=== PATIENT | female | born 1960 | race Caucasian/White ===

== ENCOUNTER 2020-12-29 15:15 | Outpatient (CLI) | payer OTHER ==
[2020-12-29 16:19] LABS: #Basophils 0.1 10x3/uL (0.0-0.2); #Eosinphils 0.2 10x3/uL (0.0-0.5); #Monocytes 0.5 10x3/uL (0.0-1.1); #Neutrophils 4.6 10x3/uL (1.5-8.4); %Eosinophils 2.1 % (0.0-6.0); %Lymphocytes 34.2 % (18.0-47.0); %Neutrophils 56.5 % (40.0-75.0); Hemoglobin 12.9 g/dL (12.0-15.5); Mean Corpuscular HGB CONC 32.1 g/dL (32.0-36.0); Mean Corpuscular Hemoglobin 29.8 pg (27.0-33.0); Mean Corpuscular Volume 92.8 fl (81.6-98.3); Mean Platelet Volume 12.1 fl (7.4-10.4); Platelet Count 256 10x3/uL (150-450); RBC Distribution Width 13.3 % (11.5-14.5); Red Blood Cell (RBC) Count 4.33 10x6/uL (3.90-5.03); White Blood Cell (WBC) Count 8.2 10x3/uL (3.5-10.5)
[2020-12-29 16:43] LABS: Anion Gap 11 mmol/L (10-20); BUN (Urea Nitrogen) 14 mg/dL (9.8-20.1); Calc. Creatinine Clearance 0 mL/min (70-130); Calcium 9.3 mg/dL (7.8-10.44); Carbon Dioxide 27 mmol/L (22-29); Chloride 106 mmol/L (98-107); Glucose 73 mg/dL (70-105); Potassium 4.2 mmol/L (3.5-5.1); Sodium 140 mmol/L (136-145)
[2020-12-30 02:10] LABS: SARS-CoV-2 PCR by NAA Not Detected (NotDetected)
== END 2020-12-29 15:16 | disposition home or self-care (01) ==
LOC: LABBT 15:15
PROVIDERS: ATTEND Orthopaedic Surgery
DX: Z01.812 Encounter for preprocedural laboratory examination (principal); S83.281A Other tear of lateral meniscus, current injury, right knee, initial encounter; S83.241A Other tear of medial meniscus, current injury, right knee, initial encounter; Z20.822 Contact with and (suspected) exposure to COVID-19
CPT/HCPCS: 80048; 85025; 87635; U0003; U0005

== ENCOUNTER 2021-01-03 10:20 | Day surgery (SDC) | payer OTHER ==
[2021-01-02 12:14] VITALS: BMI 37.8
[2021-01-03] MEDS ORDERED: PROPOFOL 20 ML ONE (12:45)
[2021-01-03] MEDS ORDERED: Fentanyl 100 MCG/2 ML VIAL ONE ×2 (14:27→16:02)
[2021-01-03] MEDS ORDERED: Dexamethasone 20 MG/5 ML VIAL ONE (14:44)
[2021-01-03] MEDS ORDERED: Bupivacaine PF 0.5% 30 ML VIAL ONE (14:44)
[2021-01-03] MEDS ORDERED: Lidocaine 1% PF 5 ML VIAL ONE (14:44)
[2021-01-03] MEDS ORDERED: PROPOFOL 200 MG/20 ML VIAL ONE (14:44)
[2021-01-03] MEDS ORDERED: Lidocaine 2% w/Epinephrine 1:200K 20 ML VIAL ONE (14:44)
[2021-01-03] MEDS ORDERED: Ondansetron PF 4 MG/2 ML Vial ONE (14:44)
[2021-01-03] MEDS ORDERED: HYDROcodone/Acetaminophen 5/325 mg Tablet ONE (16:59)
[2021-01-03] MEDS ORDERED: Sodium Chloride 0.9% 10 ML ONE (17:11)
[2021-01-03] MEDS ORDERED: Promethazine HCl 25 MG/ML VIAL ONE (17:11)
== END 2021-01-03 18:23 | disposition home or self-care (01) ==
LOC: SDC 10:20
PROVIDERS: ATTEND Orthopaedic Surgery
PROC: 0SBC4ZZ Excision of Right Knee Joint, Percutaneous Endoscopic Approach (ICD-10-PCS; principal; 2021-01-03)
DX: S83.241A Other tear of medial meniscus, current injury, right knee, initial encounter (principal); S83.281A Other tear of lateral meniscus, current injury, right knee, initial encounter; Z79.899 Other long term (current) drug therapy; Z88.2 Allergy status to sulfonamides
CPT/HCPCS: J0690; J1100; J2405; J2550; J2704; J3010; S0020

== ENCOUNTER 2021-09-25 11:59 | Inpatient (IN) | payer OTHER ==
[2021-09-25] MEDS ORDERED: Diltiazem 125 MG/25 ML ONE (12:14)
[2021-09-25 12:35] LABS: #Basophils 0.1 thou/uL (0.0-0.2); #Eosinphils 0.1 thou/uL (0.0-0.7); #Lymphocytes 2.9 thou/uL (1.20-3.40); #Monocytes 0.6 thou/uL (0.11-0.59); #Neutrophils 6.1 thou/uL (1.40-6.50); %Basophils 0.7 % (0.0-1.0); %Eosinophils 0.7 % (0.0-10.0); %Lymphocytes 29.8 % (21.0-51.0); %Monocytes 6.3 % (0.0-10.0); %Neutrophils 62.4 % (42.0-75.0); Mean Corpuscular HGB CONC 33.7 g/dL (32.0-36.0); Mean Corpuscular Hemoglobin 31.1 pg (27.0-31.0); Mean Corpuscular Volume 92.5 fL (78.0-98.0); Mean Platelet Volume 9.3 fL (7.4-10.4); Platelet Count 253 thou/uL (130-400); RBC Distribution Width 12.1 % (11.5-14.5); Red Blood Cell (RBC) Count 4.48 mill/uL (4.20-5.40); White Blood Cell (WBC) Count 9.7 thou/uL (4.8-10.8)
[2021-09-25 13:07] LABS: ALT (SGPT) 86 U/L (8-55); AST (SGOT) 41 U/L (5-34); Albumin 4.2 g/dL (3.5-5.0); Alkaline Phosphatase 114 U/L (40-110); Anion Gap 12 mmol/L (10-20); BUN (Urea Nitrogen) 14 mg/dL (9.8-20.1); Bilirubin, Total 0.5 mg/dL (0.2-1.2); Calc. Creatinine Clearance 0 mL/min (70-130); Calcium 9.7 mg/dL (7.8-10.44); Carbon Dioxide 26 mmol/L (22-29); Chloride 107 mmol/L (98-107); Globulin 3.3 g/dL (2.4-3.5); Glucose 119 mg/dL (70-105); Lipase 24 U/L (8-78); Potassium 4.4 mmol/L (3.5-5.1); Protein, Total 7.5 g/dL (6.0-8.3); Sodium 141 mmol/L (136-145)
[2021-09-25] MEDS ORDERED: Acetaminophen 325 MG TAB PO PRN (14:46)
[2021-09-25] MEDS ORDERED: Ondansetron ODT 4 MG TAB PO PRN (14:46)
[2021-09-25] MEDS ORDERED: Enoxaparin Sodium 40 MG/0.4 ML SYRINGE SC SCH (15:00)
[2021-09-25] MEDS ORDERED: Diltiazem 125 MG in Sodium Chloride 0.9% 100 ML IVPB SCH (15:00)
[2021-09-25] MEDS ORDERED: Levalbuterol HCl 0.63 MG/3 ML NEB NEB PRN (15:05)
[2021-09-25 15:41] LABS: Troponin I Less than 0.010 ng/mL (< 0.028)
[2021-09-25] MEDS ORDERED: Acetaminophen 325 MG TAB ONE (16:04)
[2021-09-25] MEDS ORDERED: Loratadine 10 MG TAB PO PRN (16:12)
[2021-09-25 16:53] LABS: SARS-CoV-2 NAA Rapid Test Not Detected (NotDetected)
[2021-09-25] MEDS: Mometasone 200 MCG/Formoterol 5 MCG 120 PUFF INHALER INH SCH (20:02)
[2021-09-25 20:25] LABS: Troponin I Less than 0.010 ng/mL (< 0.028)
[2021-09-25 20:26] VITALS: BMI 38.3
[2021-09-25 20:40] LABS: Thyroid Stimulating Hormone 2.9652 uIU/mL (0.35-4.94)
[2021-09-25] MEDS: Montelukast Sodium 10 mg Tablet PO SCH (21:02)
[2021-09-25] MEDS: Famotidine 20 MG TAB PO SCH (21:02)
[2021-09-26 02:47] LABS: HBCM Index 0.06 S/CO (0-0.79); HBSAg Index 0.26 S/CO (0-0.99); Hep A IgM AB Non-Reactive (NonReactive); Hep A IgM S/CO 0.07 S/CO (0-0.79); Hep B Surf Ag Non-Reactive S/CO (NonReactive); Hepatitis B Core IgM Abs Non-Reactive (NonReactive)
[2021-09-26 04:02] LABS: Hep C IgG Ab Non-Reactive (NonReactive); Hep C Index 0.12 S/CO (0-0.79)
[2021-09-26 05:16] LABS: #Basophils 0.1 thou/uL (0.0-0.2); #Eosinphils 0.2 thou/uL (0.0-0.7); #Lymphocytes 2.8 thou/uL (1.20-3.40); #Monocytes 0.5 thou/uL (0.11-0.59); %Basophils 0.9 % (0.0-1.0); %Eosinophils 1.9 % (0.0-10.0); %Lymphocytes 32.8 % (21.0-51.0); %Monocytes 6.3 % (0.0-10.0); %Neutrophils 58.2 % (42.0-75.0); Hemoglobin 12.6 g/dL (12.0-16.0); Mean Corpuscular HGB CONC 32.5 g/dL (32.0-36.0); Mean Corpuscular Hemoglobin 30.4 pg (27.0-31.0); Mean Corpuscular Volume 93.4 fL (78.0-98.0); Mean Platelet Volume 9.4 fL (7.4-10.4); Platelet Count 217 thou/uL (130-400); RBC Distribution Width 12.1 % (11.5-14.5); Red Blood Cell (RBC) Count 4.15 mill/uL (4.20-5.40); White Blood Cell (WBC) Count 8.5 thou/uL (4.8-10.8)
[2021-09-26 05:40] LABS: ALT (SGPT) 65 U/L (8-55); AST (SGOT) 28 U/L (5-34); Albumin 3.5 g/dL (3.5-5.0); Alkaline Phosphatase 82 U/L (40-110); Anion Gap 10 mmol/L (10-20); BUN (Urea Nitrogen) 11 mg/dL (9.8-20.1); Bilirubin, Total 0.7 mg/dL (0.2-1.2); Calc. Creatinine Clearance 130 mL/min (70-130); Calcium 8.8 mg/dL (7.8-10.44); Carbon Dioxide 25 mmol/L (22-29); Chloride 108 mmol/L (98-107); Globulin 3.2 g/dL (2.4-3.5); Glucose 93 mg/dL (70-105); Potassium 3.9 mmol/L (3.5-5.1); Protein, Total 6.7 g/dL (6.0-8.3); Sodium 139 mmol/L (136-145)
[2021-09-26] MEDS: Mometasone 200 MCG/Formoterol 5 MCG 120 PUFF INHALER INH SCH ×2 (07:23→18:39)
[2021-09-26] MEDS: Famotidine 20 MG TAB PO SCH ×2 (07:52→20:45)
[2021-09-26] MEDS: Aspirin Chewable 81 MG TAB PO SCH (07:52)
[2021-09-26] MEDS: Multivit, Therapeutic 1 TAB PO SCH (07:53)
[2021-09-26] MEDS ORDERED: Thiamine 100 MG TAB PO SCH (09:00)
[2021-09-26] MEDS ORDERED: Folic Acid 1 MG TAB PO SCH (09:00)
[2021-09-26] MEDS ORDERED: Enoxaparin Sodium 40 MG/0.4 ML SYRINGE SC SCH ×2 (09:00→21:00)
[2021-09-26] MEDS ORDERED: Communication Order-Pharmacy FS SCH (16:45)
[2021-09-26] MEDS: Carvedilol 3.125 MG TAB PO SCH (18:03)
[2021-09-26] MEDS: Amiodarone 200 MG TAB PO SCH (20:44)
[2021-09-26] MEDS: Montelukast Sodium 10 mg Tablet PO SCH (20:45)
[2021-09-27] MEDS: Amiodarone 200 MG TAB PO SCH ×2 (05:12→20:33)
[2021-09-27] MEDS: Famotidine 20 MG TAB PO SCH ×2 (05:12→20:33)
[2021-09-27] MEDS: Aspirin Chewable 81 MG TAB PO SCH (05:12)
[2021-09-27] MEDS: Multivit, Therapeutic 1 TAB PO SCH (05:12)
[2021-09-27] MEDS: Carvedilol 3.125 MG TAB PO SCH ×2 (05:13→16:05)
[2021-09-27 05:34] LABS: Cardiac Risk 4.3 (Less than 4.5)
[2021-09-27] MEDS ORDERED: Sodium Chloride 0.9% 1,000 ML IV SCH ×2 (06:00→08:19)
[2021-09-27] MEDS: Mometasone 200 MCG/Formoterol 5 MCG 120 PUFF INHALER INH SCH ×2 (07:06→18:31)
[2021-09-27] MEDS ORDERED: Heparin 10,000 UNITS/ 10 ML VIAL ONE (07:09)
[2021-09-27] MEDS ORDERED: Fentanyl 100 MCG/2 ML VIAL ONE (07:15)
[2021-09-27] MEDS ORDERED: Midazolam HCl 2 mg/2 ml Vial ONE (07:15)
[2021-09-27] MEDS ORDERED: Protamine Sulfate 50 MG/5 ML VIAL ONE (08:02)
[2021-09-27] MEDS ORDERED: Sodium Chloride 0.9% 200 ML IV PRN (08:18)
[2021-09-27] MEDS ORDERED: Nitroglycerin 0.4 MG TAB (25 Tab Bottle) SL PRN (08:18)
[2021-09-27] MEDS ORDERED: Acetaminophen/Codeine 30-300mg Tablet PO PRN ×2 (08:18)
[2021-09-27] MEDS ORDERED: Iopamidol 370 76% 100 ML VIAL ONE (10:55)
[2021-09-27] MEDS: Atorvastatin Calcium 10 MG TAB PO SCH (20:33)
[2021-09-27] MEDS: Montelukast Sodium 10 mg Tablet PO SCH (20:33)
[2021-09-28] MEDS: Mometasone 200 MCG/Formoterol 5 MCG 120 PUFF INHALER INH SCH ×2 (07:09→19:10)
[2021-09-28] MEDS: Multivit, Therapeutic 1 TAB PO SCH (09:03)
[2021-09-28] MEDS: Famotidine 20 MG TAB PO SCH ×2 (09:03→21:31)
[2021-09-28] MEDS: Carvedilol 3.125 MG TAB PO SCH ×2 (09:03→16:06)
[2021-09-28] MEDS: Amiodarone 200 MG TAB PO SCH ×2 (09:03→21:30)
[2021-09-28] MEDS: Aspirin Chewable 81 MG TAB PO SCH (09:03)
[2021-09-28] MEDS ORDERED: Diltiazem 125 MG in Sodium Chloride 0.9% 100 ML IVPB SCH (19:45)
[2021-09-28] MEDS: Atorvastatin Calcium 10 MG TAB PO SCH (21:30)
[2021-09-28] MEDS: Montelukast Sodium 10 mg Tablet PO SCH (21:31)
[2021-09-29 05:09] LABS: Anion Gap 13 mmol/L (10-20); BUN (Urea Nitrogen) 12 mg/dL (9.8-20.1); Calc. Creatinine Clearance 121 mL/min (70-130); Calcium 9.2 mg/dL (7.8-10.44); Carbon Dioxide 19 mmol/L (22-29); Chloride 109 mmol/L (98-107); Glucose 96 mg/dL (70-105); Sodium 137 mmol/L (136-145)
[2021-09-29] MEDS: Mometasone 200 MCG/Formoterol 5 MCG 120 PUFF INHALER INH SCH ×2 (07:22→19:11)
[2021-09-29 09:23] LABS: #Basophils 0.1 thou/uL (0.0-0.2); #Eosinphils 0.1 thou/uL (0.0-0.7); #Lymphocytes 2.3 thou/uL (1.20-3.40); #Monocytes 0.6 thou/uL (0.11-0.59); #Neutrophils 5.4 thou/uL (1.40-6.50); %Basophils 0.9 % (0.0-1.0); %Eosinophils 1.3 % (0.0-10.0); %Lymphocytes 27.4 % (21.0-51.0); %Monocytes 7.1 % (0.0-10.0); %Neutrophils 63.3 % (42.0-75.0); Hemoglobin 13.9 g/dL (12.0-16.0); Mean Corpuscular HGB CONC 34.6 g/dL (32.0-36.0); Mean Corpuscular Volume 92.4 fL (78.0-98.0); Mean Platelet Volume 9.6 fL (7.4-10.4); Platelet Count 230 thou/uL (130-400); Red Blood Cell (RBC) Count 4.34 mill/uL (4.20-5.40); White Blood Cell (WBC) Count 8.5 thou/uL (4.8-10.8)
[2021-09-29] MEDS: Amiodarone 200 MG TAB PO SCH ×2 (10:08→20:58)
[2021-09-29] MEDS: Famotidine 20 MG TAB PO SCH ×2 (10:08→20:59)
[2021-09-29] MEDS: Apixaban 5 MG TAB PO SCH ×2 (10:08→20:58)
[2021-09-29] MEDS: Furosemide 20 MG TAB PO SCH (10:08)
[2021-09-29] MEDS: Multivit, Therapeutic 1 TAB PO SCH (10:08)
[2021-09-29] MEDS: Carvedilol 3.125 MG TAB PO SCH ×2 (10:08→17:20)
[2021-09-29] MEDS: Montelukast Sodium 10 mg Tablet PO SCH (20:59)
[2021-09-29] MEDS: Atorvastatin Calcium 10 MG TAB PO SCH (20:59)
[2021-09-30] MEDS: Amiodarone 200 MG TAB PO SCH ×2 (09:41→21:46)
[2021-09-30] MEDS: Carvedilol 3.125 MG TAB PO SCH ×2 (09:41→18:03)
[2021-09-30] MEDS: Famotidine 20 MG TAB PO SCH ×2 (09:41→21:47)
[2021-09-30] MEDS: Apixaban 5 MG TAB PO SCH ×2 (09:41→21:46)
[2021-09-30] MEDS: Multivit, Therapeutic 1 TAB PO SCH (09:42)
[2021-09-30] MEDS: Furosemide 20 MG TAB PO SCH (09:42)
[2021-09-30] MEDS: Mometasone 200 MCG/Formoterol 5 MCG 120 PUFF INHALER INH SCH ×2 (09:51→19:01)
[2021-09-30] MEDS: Atorvastatin Calcium 10 MG TAB PO SCH (21:46)
[2021-09-30] MEDS: Montelukast Sodium 10 mg Tablet PO SCH (21:47)
[2021-10-01] MEDS: Mometasone 200 MCG/Formoterol 5 MCG 120 PUFF INHALER INH SCH (08:11)
[2021-10-01] MEDS: Famotidine 20 MG TAB PO SCH (09:06)
[2021-10-01] MEDS: Multivit, Therapeutic 1 TAB PO SCH (09:06)
[2021-10-01] MEDS: Carvedilol 3.125 MG TAB PO SCH (09:07)
[2021-10-01] MEDS: Amiodarone 200 MG TAB PO SCH (09:07)
[2021-10-01] MEDS: Apixaban 5 MG TAB PO SCH (09:07)
[2021-10-01] MEDS: Furosemide 20 MG TAB PO SCH (10:11)
[2021-10-01 12:09] VITALS: BP 120/56; TEMP 97.6
== END 2021-10-01 16:45 | disposition home or self-care (01) | DRG 287 ==
LOC: ERS 11:59 → SUATTDRO 11:59 → ERHOLD 14:10 → 2NO 19:42
PROVIDERS: ADMIT Family Medicine; ATTEND Internal Medicine
PROC: 4A023N7 Measurement of Cardiac Sampling and Pressure, Left Heart, Percutaneous Approach (ICD-10-PCS; principal; 2021-09-27)
PROC: B2111ZZ Fluoroscopy of Multiple Coronary Arteries using Low Osmolar Contrast (ICD-10-PCS; 2021-09-27)
PROC: B2151ZZ Fluoroscopy of Left Heart using Low Osmolar Contrast (ICD-10-PCS; 2021-09-27)
DX: I48.91 Unspecified atrial fibrillation (principal); Z20.822 Contact with and (suspected) exposure to COVID-19; I08.3 Combined rheumatic disorders of mitral, aortic and tricuspid valves; J45.909 Unspecified asthma, uncomplicated; R79.89 Other specified abnormal findings of blood chemistry; I44.7 Left bundle-branch block, unspecified; I10 Essential (primary) hypertension; E11.9 Type 2 diabetes mellitus without complications; E78.5 Hyperlipidemia, unspecified; I42.8 Other cardiomyopathies; Z79.899 Other long term (current) drug therapy; Z88.2 Allergy status to sulfonamides; Z72.89 Other problems related to lifestyle
CPT/HCPCS: 36415; 71045; 80048; 80053; 80061; 80074; 83690; 83735; 83880; 84443; 84484; 85025; 85347; 93005; 93306; 93456; 93458; 96365; 96366; 96376; 99152; J1644; J1650; J2250; J2720; J3010; J7050; Q9967; U0002

== ENCOUNTER 2022-05-18 21:22 | Emergency (ER) | payer OTHER | END 2022-05-18 22:35 | disposition home or self-care (01) | LOC: ERS 21:22 | DX: S09.90XA Unspecified injury of head, initial encounter (principal); S13.4XXA Sprain of ligaments of cervical spine, initial encounter; W01.0XXA Fall on same level from slipping, tripping and stumbling without subsequent striking against object, initial encounter | CPT/HCPCS: 70450; 72125 ==

== ENCOUNTER 2022-06-20 08:35 | Outpatient (CLI) | payer OTHER ==
[2022-06-20 10:12] LABS: Mean Corpuscular HGB CONC 32.6 g/dL (32.0-36.0); Mean Corpuscular Hemoglobin 31.3 pg (27.0-33.0); Mean Corpuscular Volume 96.1 fl (81.6-98.3); Platelet Count 197 10x3/uL (150-450); RBC Distribution Width 13.4 % (11.5-14.5); Red Blood Cell (RBC) Count 4.15 10x6/uL (3.90-5.03); White Blood Cell (WBC) Count 6.4 10x3/uL (3.5-10.5)
[2022-06-20 10:42] LABS: PTT 29.9 sec (22.0-33.0); Prothrombin Time 10.8 sec (9.5-12.1)
[2022-06-20 10:48] LABS: Anion Gap 14 mmol/L (10-20); BUN (Urea Nitrogen) 16 mg/dL (9.8-20.1); Calc. Creatinine Clearance 0 mL/min (70-130); Calcium 9.1 mg/dL (7.8-10.44); Carbon Dioxide 26 mmol/L (22-29); Chloride 105 mmol/L (98-107); Estimated GFR 64; Glucose 89 mg/dL (70-105); Potassium 4.7 mmol/L (3.5-5.1); Sodium 140 mmol/L (136-145)
== END 2022-06-20 08:36 | disposition home or self-care (01) ==
LOC: LABBT 08:35
PROVIDERS: ATTEND Internal Medicine Cardiovascular Disease
DX: Z01.818 Encounter for other preprocedural examination (principal); I48.0 Paroxysmal atrial fibrillation; I50.9 Heart failure, unspecified; Z20.822 Contact with and (suspected) exposure to COVID-19
CPT/HCPCS: 80048; 85027; 85610; 85730; 87811; 93005; 93010

== ENCOUNTER 2022-06-27 12:57 | Outpatient (CLI) | payer OTHER | END 2022-06-27 12:58 | disposition home or self-care (01) | LOC: LABBT 12:57 | PROVIDERS: ATTEND Internal Medicine Cardiovascular Disease | DX: Z20.822 Contact with and (suspected) exposure to COVID-19 (principal) | CPT/HCPCS: 87811 ==

== ENCOUNTER 2022-07-02 06:10 | Day surgery (SDC) | payer OTHER ==
[2022-06-22 09:31] VITALS: BMI 36.6
[2022-07-02] MEDS ORDERED: Heparin 10,000 UNITS/ 10 ML VIAL ONE (07:02)
[2022-07-02] MEDS ORDERED: Isoproterenol 0.2 MG/1 ML AMP ONE (07:02)
[2022-07-02] MEDS ORDERED: Heparin 25,000 units/D5W 500 ML ONE (07:02)
[2022-07-02] MEDS ORDERED: Protamine Sulfate 50 MG/5 ML VIAL ONE (07:02)
[2022-07-02] MEDS ORDERED: Rocuronium Bromide 10 MG/ML (10ML VIAL) ONE (08:38)
[2022-07-02] MEDS ORDERED: Phenylephrine 10 MG/ML VIAL ONE (08:38)
[2022-07-02] MEDS ORDERED: Esmolol 100 MG/10 ML VIAL ONE (08:38)
[2022-07-02] MEDS ORDERED: PROPOFOL 200 MG/20 ML VIAL ONE (08:38)
[2022-07-02] MEDS ORDERED: Lidocaine 1% MPF 2 ML VIAL ONE (08:38)
[2022-07-02] MEDS ORDERED: Ondansetron PF 4 MG/2 ML Vial ONE (08:38)
[2022-07-02] MEDS ORDERED: Dexamethasone 20 MG/5 ML VIAL ONE (08:38)
[2022-07-02] MEDS ORDERED: Fentanyl 100 MCG/2 ML VIAL ONE (08:42)
[2022-07-02] MEDS ORDERED: Furosemide 40 MG TAB PO PRN (08:58)
[2022-07-02] MEDS ORDERED: Potassium Chloride 20 MEQ TAB PO PRN (08:58)
[2022-07-02] MEDS ORDERED: Propofol 500 MG/50 ML VIAL ONE (09:00)
[2022-07-02] MEDS ORDERED: Sucralfate 1 GM TAB PO SCH (11:30)
[2022-07-02] MEDS ORDERED: SUGAMMADEX SODIUM 200 MG/2 ML VIAL ONE (12:34)
[2022-07-02] MEDS ORDERED: Ketorolac Tromethamine 30 MG/ML VIAL IVP PRN (13:06)
[2022-07-02] MEDS ORDERED: Promethazine HCl 25 MG/ML VIAL IVPB PRN (13:06)
[2022-07-02] MEDS ORDERED: Meperidine HCl/PF 25 MG/ML VIAL SLOW IVP PRN (13:06)
[2022-07-02] MEDS ORDERED: fentaNYL Citrate/PF 100 MCG/2 ML SYRINGE ONE (13:26)
== END 2022-07-02 17:05 | disposition home or self-care (01) ==
LOC: SDC 06:10
PROVIDERS: ATTEND Internal Medicine Cardiovascular Disease
PROC: B244ZZ3 Ultrasonography of Right Heart, Intravascular (ICD-10-PCS; principal; 2022-07-02)
PROC: 4A023FZ Measurement of Cardiac Rhythm, Percutaneous Approach (ICD-10-PCS; principal; 2022-07-02)
PROC: 02583ZZ Destruction of Conduction Mechanism, Percutaneous Approach (ICD-10-PCS; principal; 2022-07-02)
PROC: 4A0234Z Measurement of Cardiac Electrical Activity, Percutaneous Approach (ICD-10-PCS; principal; 2022-07-02)
PROC: 02K83ZZ Map Conduction Mechanism, Percutaneous Approach (ICD-10-PCS; principal; 2022-07-02)
DX: I48.19 Other persistent atrial fibrillation (principal); I42.9 Cardiomyopathy, unspecified; I11.0 Hypertensive heart disease with heart failure; I50.22 Chronic systolic (congestive) heart failure; I44.7 Left bundle-branch block, unspecified; J45.909 Unspecified asthma, uncomplicated; E78.00 Pure hypercholesterolemia, unspecified; Z79.01 Long term (current) use of anticoagulants; Z79.899 Other long term (current) drug therapy; Z88.2 Allergy status to sulfonamides; Z91.048 Other nonmedicinal substance allergy status; Z95.810 Presence of automatic (implantable) cardiac defibrillator
CPT/HCPCS: 85347; 93005; 93010; 93622; 93623; 93656; C1732; C1759; C1760; C1769; C1894; J1100; J1644; J2370; J2405; J2704; J2720; J3010

== ENCOUNTER 2022-07-10 16:13 | Inpatient (IN) | payer OTHER ==
[2022-07-10 16:53] LABS: #Basophils 0.1 thou/uL (0.0-0.2); #Lymphocytes 1.9 thou/uL (1.20-3.40); #Monocytes 1.5 thou/uL (0.11-0.59); #Neutrophils 8.7 thou/uL (1.40-6.50); %Basophils 0.8 % (0.0-1.0); %Eosinophils 0.3 % (0.0-10.0); %Lymphocytes 15.7 % (21.0-51.0); %Monocytes 12.1 % (0.0-10.0); %Neutrophils 71.1 % (42.0-75.0); Hemoglobin 11.6 g/dL (12.0-16.0); Mean Corpuscular HGB CONC 32.2 g/dL (32.0-36.0); Mean Corpuscular Hemoglobin 31.5 pg (27.0-31.0); Mean Corpuscular Volume 97.7 fL (78.0-98.0); Mean Platelet Volume 9.2 fL (7.4-10.4); Platelet Count 257 thou/uL (130-400); RBC Distribution Width 11.9 % (11.5-14.5); White Blood Cell (WBC) Count 12.2 thou/uL (4.8-10.8)
[2022-07-10 17:13] LABS: ALT (SGPT) 112 U/L (8-55); AST (SGOT) 84 U/L (5-34); Albumin 3.6 g/dL (3.5-5.0); Alkaline Phosphatase 137 U/L (40-110); Anion Gap 15 mmol/L (10-20); BUN (Urea Nitrogen) 18 mg/dL (9.8-20.1); Bilirubin, Total 1.1 mg/dL (0.2-1.2); Calc. Creatinine Clearance 0 mL/min (70-130); Carbon Dioxide 24 mmol/L (22-29); Chloride 101 mmol/L (98-107); Estimated GFR 64; Globulin 3.5 g/dL (2.4-3.5); Glucose 121 mg/dL (70-105); Magnesium 2.1 mg/dL (1.6-2.6); Potassium 4.7 mmol/L (3.5-5.1); Protein, Total 7.1 g/dL (6.0-8.3); Sodium 135 mmol/L (136-145)
[2022-07-10 17:23] LABS: INR-International Normal Ratio 1.4; Prothrombin Time 17.2 sec (12.0-14.7)
[2022-07-10 17:24] LABS: PTT 36.1 sec (22.9-36.1)
[2022-07-10] MEDS ORDERED: Bupivacaine PF 0.5% 30 ML VIAL ONE (17:26)
[2022-07-10] MEDS ORDERED: fentaNYL Citrate/PF 100 MCG/2 ML SYRINGE ONE ×2 (17:29→18:32)
[2022-07-10] MEDS ORDERED: DOBUTamine 500 mg/250 ml 0 ML ONE (17:29)
[2022-07-10] MEDS ORDERED: DOPamine 400 MG/D5W 250 ML 250 ML ONE (17:32)
[2022-07-10 17:34] LABS: CKMB 0.9 ng/mL (0-6.6)
[2022-07-10] MEDS ORDERED: PROPOFOL 200 MG/20 ML VIAL ONE (17:54)
[2022-07-10] MEDS ORDERED: Rocuronium Bromide 10 MG/ML (10ML VIAL) ONE (17:54)
[2022-07-10] MEDS ORDERED: Dexamethasone 20 MG/5 ML VIAL ONE (17:54)
[2022-07-10] MEDS ORDERED: Succinylcholine 200 MG/10 ml SYRINGE FS ONE (17:54)
[2022-07-10] MEDS ORDERED: Ondansetron PF 4 MG/2 ML Vial ONE (17:54)
[2022-07-10] MEDS ORDERED: SUGAMMADEX SODIUM 200 MG/2 ML VIAL ONE (18:17)
[2022-07-10] MEDS ORDERED: Acetaminophen 325 MG TAB PO PRN (18:50)
[2022-07-10] MEDS ORDERED: Ondansetron ODT 4 MG TAB PO PRN (18:50)
[2022-07-10] MEDS ORDERED: Calcium Carbonate 500 MG ChewTAB PO PRN (18:50)
[2022-07-10] MEDS ORDERED: Ondansetron PF 4 MG/2 ML Vial IVP PRN (18:50)
[2022-07-10] MEDS ORDERED: Fentanyl 100 MCG/2 ML VIAL SLOW IVP PRN (18:50)
[2022-07-10] MEDS ORDERED: HYDROcodone/Acetaminophen 5/325 mg Tablet PO PRN (18:50)
[2022-07-10] MEDS ORDERED: Ketorolac Tromethamine 30 MG/ML VIAL ONE (20:09)
[2022-07-10 20:17] LABS: RBC Count-Automated (BF) 70874 /cu.mm; WBC/Nucleated-Auto (BF) 1552 /cu.mm
[2022-07-10] MEDS ORDERED: Albuterol Sulfate 2.5 mg/3 ml Neb NEB PRN (20:26)
[2022-07-10] MEDS ORDERED: Non-Formulary Medication 1 EACH PO PRN (20:41)
[2022-07-10] MEDS ORDERED: Ondansetron HCl/PF 4 MG/2 ML Vial IVP PRN (20:45)
[2022-07-10] MEDS ORDERED: Ketorolac Tromethamine 30 MG/ML VIAL IM/IV PRN (20:45)
[2022-07-10] MEDS ORDERED: Promethazine HCl 25 MG/ML VIAL IM/IV PRN (20:45)
[2022-07-10] MEDS ORDERED: Famotidine 20 MG TAB PO SCH (21:00)
[2022-07-10 21:05] LABS: Body Fluid Source Pericardial Fluid; Tube # EDTA
[2022-07-10 21:06] LABS: BF Color Red; Clarity Cloudy/Turbid (Clear)
[2022-07-10 21:08] LABS: BF Segmented Neutrophils 92 %; Cell Count Non Hematic 5 %; Lymphocytes 3 %
[2022-07-10] MEDS: Sucralfate 1 GM TAB PO SCH (22:22)
[2022-07-10] MEDS: Atorvastatin Calcium 10 MG TAB PO SCH (22:23)
[2022-07-10 22:38] VITALS: BMI 40.1
[2022-07-11] MEDS: Ketorolac Tromethamine 30 MG/ML VIAL IVP SCH ×5 (01:21→23:40)
[2022-07-11] MEDS: CEFAZOLIN 2 GM in Sodium Chloride 0.9% 100 ML IVPB SCH ×3 (01:23→18:25)
[2022-07-11 08:14] LABS: #Eosinphils 0.1 thou/uL (0.0-0.7); #Lymphocytes 1.2 thou/uL (1.20-3.40); #Monocytes 0.8 thou/uL (0.11-0.59); #Neutrophils 9.7 thou/uL (1.40-6.50); %Basophils 0.2 % (0.0-1.0); %Eosinophils 0.4 % (0.0-10.0); %Lymphocytes 10.4 % (21.0-51.0); Hemoglobin 11.7 g/dL (12.0-16.0); Mean Corpuscular Hemoglobin 32.5 pg (27.0-31.0); Mean Corpuscular Volume 98.4 fL (78.0-98.0); Mean Platelet Volume 8.8 fL (7.4-10.4); Platelet Count 243 thou/uL (130-400); RBC Distribution Width 11.9 % (11.5-14.5); Red Blood Cell (RBC) Count 3.59 mill/uL (4.20-5.40); White Blood Cell (WBC) Count 11.8 thou/uL (4.8-10.8)
[2022-07-11 08:30] LABS: Anion Gap 16 mmol/L (10-20); BUN (Urea Nitrogen) 19 mg/dL (9.8-20.1); Calc. Creatinine Clearance 114 mL/min (70-130); Calcium 8.9 mg/dL (7.8-10.44); Carbon Dioxide 21 mmol/L (22-29); Chloride 104 mmol/L (98-107); Estimated GFR 78; Glucose 113 mg/dL (70-105); Potassium 4.9 mmol/L (3.5-5.1); Sodium 136 mmol/L (136-145)
[2022-07-11] MEDS ORDERED: FLU VACC QS2022-23(6MOS UP)/PF 60 MCG/0.5 ML SYRINGE IM ONE (09:00)
[2022-07-11] MEDS: Enoxaparin Sodium 40 MG/0.4 ML SYRINGE SC SCH (09:37)
[2022-07-11] MEDS: Sucralfate 1 GM TAB PO SCH ×2 (09:37→11:32)
[2022-07-11] MEDS: Carvedilol 3.125 MG TAB PO SCH ×2 (09:37→16:23)
[2022-07-11] MEDS: Mometasone 200 MCG/Formoterol 5 MCG 120 PUFF INHALER INH SCH ×2 (10:57→18:11)
[2022-07-11] MEDS: Sucralfate 1 GM/10 ML UDCUP PO SCH ×2 (16:23→20:30)
[2022-07-11] MEDS: Atorvastatin Calcium 10 MG TAB PO SCH (20:30)
[2022-07-12] MEDS: CEFAZOLIN 2 GM in Sodium Chloride 0.9% 100 ML IVPB SCH ×3 (01:53→17:46)
[2022-07-12 04:23] LABS: #Lymphocytes 1.8 thou/uL (1.20-3.40); #Neutrophils 9.3 thou/uL (1.40-6.50); %Eosinophils 0.1 % (0.0-10.0); %Lymphocytes 14.7 % (21.0-51.0); %Monocytes 7.9 % (0.0-10.0); %Neutrophils 77.4 % (42.0-75.0); Hemoglobin 10.8 g/dL (12.0-16.0); Mean Corpuscular HGB CONC 31.5 g/dL (32.0-36.0); Mean Corpuscular Hemoglobin 31.2 pg (27.0-31.0); Mean Corpuscular Volume 99.2 fL (78.0-98.0); Mean Platelet Volume 9.6 fL (7.4-10.4); Platelet Count 263 thou/uL (130-400); RBC Distribution Width 11.8 % (11.5-14.5); Red Blood Cell (RBC) Count 3.45 mill/uL (4.20-5.40)
[2022-07-12 04:38] LABS: ALT (SGPT) 57 U/L (8-55); AST (SGOT) 36 U/L (5-34); Albumin 3.4 g/dL (3.5-5.0); Alkaline Phosphatase 108 U/L (40-110); Anion Gap 14 mmol/L (10-20); BUN (Urea Nitrogen) 30 mg/dL (9.8-20.1); Bilirubin, Total 0.4 mg/dL (0.2-1.2); Calc. Creatinine Clearance 82 mL/min (70-130); Calcium 8.9 mg/dL (7.8-10.44); Carbon Dioxide 26 mmol/L (22-29); Chloride 102 mmol/L (98-107); Estimated GFR 52; Globulin 3.2 g/dL (2.4-3.5); Glucose 109 mg/dL (70-105); Potassium 4.6 mmol/L (3.5-5.1); Protein, Total 6.6 g/dL (6.0-8.3); Sodium 137 mmol/L (136-145)
[2022-07-12] MEDS: Ketorolac Tromethamine 30 MG/ML VIAL IVP SCH ×3 (05:40→17:46)
[2022-07-12] MEDS: Mometasone 200 MCG/Formoterol 5 MCG 120 PUFF INHALER INH SCH ×2 (08:01→18:11)
[2022-07-12] MEDS: Enoxaparin Sodium 40 MG/0.4 ML SYRINGE SC SCH (09:25)
[2022-07-12] MEDS: Sucralfate 1 GM/10 ML UDCUP PO SCH ×4 (09:25→20:33)
[2022-07-12] MEDS: Carvedilol 3.125 MG TAB PO SCH ×2 (09:26→16:23)
[2022-07-12] MEDS ORDERED: Furosemide 40 MG/4 ML VIAL SLOW IVP SCH ×2 (11:00→18:00)
[2022-07-12] MEDS: Atorvastatin Calcium 10 MG TAB PO SCH (20:33)
[2022-07-13] MEDS: CEFAZOLIN 2 GM in Sodium Chloride 0.9% 100 ML IVPB SCH ×3 (02:05→17:44)
[2022-07-13 04:21] LABS: #Basophils 0.1 thou/uL (0.0-0.2); #Lymphocytes 3.3 thou/uL (1.20-3.40); #Monocytes 0.8 thou/uL (0.11-0.59); #Neutrophils 5.2 thou/uL (1.40-6.50); %Basophils 0.6 % (0.0-1.0); %Eosinophils 0.5 % (0.0-10.0); %Lymphocytes 35.2 % (21.0-51.0); %Monocytes 8.9 % (0.0-10.0); %Neutrophils 54.9 % (42.0-75.0); Hemoglobin 10.5 g/dL (12.0-16.0); Mean Corpuscular Hemoglobin 31.7 pg (27.0-31.0); Mean Corpuscular Volume 99.3 fL (78.0-98.0); Mean Platelet Volume 9.1 fL (7.4-10.4); Platelet Count 273 thou/uL (130-400); RBC Distribution Width 11.8 % (11.5-14.5); Red Blood Cell (RBC) Count 3.31 mill/uL (4.20-5.40); White Blood Cell (WBC) Count 9.4 thou/uL (4.8-10.8)
[2022-07-13 04:40] LABS: ALT (SGPT) 29 U/L (8-55); AST (SGOT) 25 U/L (5-34); Albumin 3.3 g/dL (3.5-5.0); Alkaline Phosphatase 91 U/L (40-110); Anion Gap 15 mmol/L (10-20); BUN (Urea Nitrogen) 35 mg/dL (9.8-20.1); Bilirubin, Total 0.3 mg/dL (0.2-1.2); Calc. Creatinine Clearance 84 mL/min (70-130); Calcium 8.7 mg/dL (7.8-10.44); Carbon Dioxide 26 mmol/L (22-29); Chloride 102 mmol/L (98-107); Estimated GFR 51; Glucose 93 mg/dL (70-105); Potassium 4.7 mmol/L (3.5-5.1); Protein, Total 6.3 g/dL (6.0-8.3); Sodium 138 mmol/L (136-145)
[2022-07-13] MEDS: Mometasone 200 MCG/Formoterol 5 MCG 120 PUFF INHALER INH SCH ×2 (08:06→18:12)
[2022-07-13] MEDS: Sucralfate 1 GM/10 ML UDCUP PO SCH ×4 (08:23→20:11)
[2022-07-13] MEDS: Carvedilol 3.125 MG TAB PO SCH ×2 (08:23→17:44)
[2022-07-13] MEDS: Furosemide 40 MG TAB PO SCH (08:23)
[2022-07-13] MEDS: Enoxaparin Sodium 40 MG/0.4 ML SYRINGE SC SCH (08:24)
[2022-07-13] MEDS: Atorvastatin Calcium 10 MG TAB PO SCH (20:11)
[2022-07-13] MEDS: Apixaban 2.5 MG TAB PO SCH (20:11)
[2022-07-14] MEDS: CEFAZOLIN 2 GM in Sodium Chloride 0.9% 100 ML IVPB SCH ×2 (01:37→08:28)
[2022-07-14] MEDS: Mometasone 200 MCG/Formoterol 5 MCG 120 PUFF INHALER INH SCH (07:18)
[2022-07-14 08:08] LABS: #Eosinphils 0.1 thou/uL (0.0-0.7); #Lymphocytes 2.8 thou/uL (1.20-3.40); #Monocytes 0.6 thou/uL (0.11-0.59); #Neutrophils 3.7 thou/uL (1.40-6.50); %Basophils 0.6 % (0.0-1.0); %Eosinophils 0.8 % (0.0-10.0); %Lymphocytes 38.7 % (21.0-51.0); %Monocytes 8.7 % (0.0-10.0); %Neutrophils 51.1 % (42.0-75.0); Hemoglobin 9.7 g/dL (12.0-16.0); Mean Corpuscular HGB CONC 31.6 g/dL (32.0-36.0); Mean Corpuscular Hemoglobin 31.4 pg (27.0-31.0); Mean Corpuscular Volume 99.3 fL (78.0-98.0); Platelet Count 262 thou/uL (130-400); RBC Distribution Width 11.9 % (11.5-14.5); White Blood Cell (WBC) Count 7.3 thou/uL (4.8-10.8)
[2022-07-14 08:21] LABS: Anion Gap 11 mmol/L (10-20); BUN (Urea Nitrogen) 23 mg/dL (9.8-20.1); Calc. Creatinine Clearance 108 mL/min (70-130); Calcium 8.5 mg/dL (7.8-10.44); Carbon Dioxide 28 mmol/L (22-29); Chloride 105 mmol/L (98-107); Estimated GFR 71; Glucose 91 mg/dL (70-105); Potassium 4.4 mmol/L (3.5-5.1); Sodium 140 mmol/L (136-145)
[2022-07-14] MEDS: Apixaban 2.5 MG TAB PO SCH (08:28)
[2022-07-14] MEDS: Furosemide 40 MG TAB PO SCH (08:28)
[2022-07-14] MEDS: Carvedilol 3.125 MG TAB PO SCH (08:28)
[2022-07-14] MEDS: Sucralfate 1 GM/10 ML UDCUP PO SCH ×2 (08:28→11:30)
[2022-07-14 08:37] VITALS: BP 123/67; TEMP 98.1
== END 2022-07-14 13:37 | disposition home or self-care (01) | DRG 271 ==
LOC: ERS 16:13 → SUATTDRO 16:13 → 2NO 17:06 → OBSVTOIN 18:16
PROVIDERS: ADMIT Internal Medicine; ATTEND Internal Medicine
PROC: 0W9D00Z Drainage of Pericardial Cavity with Drainage Device, Open Approach (ICD-10-PCS; principal; 2022-07-10)
DX: I31.39 Other pericardial effusion (noninflammatory) (principal); I42.8 Other cardiomyopathies; I50.22 Chronic systolic (congestive) heart failure; I48.19 Other persistent atrial fibrillation; N17.9 Acute kidney failure, unspecified; I31.4 Cardiac tamponade; E78.5 Hyperlipidemia, unspecified; I11.0 Hypertensive heart disease with heart failure; J45.909 Unspecified asthma, uncomplicated; K21.9 Gastro-esophageal reflux disease without esophagitis; E78.00 Pure hypercholesterolemia, unspecified; Z20.822 Contact with and (suspected) exposure to COVID-19; R79.89 Other specified abnormal findings of blood chemistry; Z96.653 Presence of artificial knee joint, bilateral; Z95.810 Presence of automatic (implantable) cardiac defibrillator; Z88.2 Allergy status to sulfonamides; Z98.890 Other specified postprocedural states; Z79.01 Long term (current) use of anticoagulants; Z79.51 Long term (current) use of inhaled steroids; Z79.899 Other long term (current) drug therapy
CPT/HCPCS: 36415; 71045; 80048; 80053; 82553; 83605; 83735; 83880; 84443; 84484; 85025; 85060; 85610; 85730; 87070; 87205; 89051; 93005; 93306; 93970; J0690; J1100; J1250; J1265; J1650; J1885; J1940; J2405; J2704; J3490; S0020; U0003; U0005

== ENCOUNTER 2022-12-13 14:04 | Outpatient (CLI) | payer OTHER | END 2022-12-13 14:05 | disposition home or self-care (01) | LOC: BICMAMMO 14:04 | PROVIDERS: ATTEND Family Medicine | DX: Z12.31 Encounter for screening mammogram for malignant neoplasm of breast (principal); N63.10 Unspecified lump in the right breast, unspecified quadrant | CPT/HCPCS: 77063; 77067 ==

== ENCOUNTER 2023-01-17 08:16 | Outpatient (CLI) | payer OTHER | END 2023-01-17 08:17 | disposition home or self-care (01) | LOC: BICMAMMO 08:16 | PROVIDERS: ATTEND Family Medicine | DX: N63.10 Unspecified lump in the right breast, unspecified quadrant (principal) | CPT/HCPCS: G0279 ==